=== PATIENT | female | born 1950 | race Caucasian/White ===

== ENCOUNTER → 2019-05-07 10:09 | Outpatient (CLI) | payer MEDICARE, SELFPAY ==
--- NOTE | ~2019-05-07 | XR_ITS ---
XR shoulder LT min 2V 05/07/2019 10:29 Indication: Left shoulder pain Procedure: 4 views left shoulder Comparison: No prior studies for comparison. Findings: No acute fracture, subluxation or dislocation. There is anatomic alignment. Normal minerali zation. Surrounding osseous structures and soft tissues are unremarkable. Impression: 1: No significant bone or joint abnormality. Reviewed, dictated and finalized at location B. [employer] Impression: 1: No significant bone or joint abnormality.
== END ==
PROVIDERS: PCP Nurse Practitioner; Visit Provider Nurse Practitioner
DX: M25.512 Pain in left shoulder (principal)
CPT/HCPCS: 73030

== ENCOUNTER 2021-01-26 08:21 | Outpatient (CLI) | payer MEDICARE, SELFPAY ==
--- NOTE | ~2021-01-26 | MR_ITS ---
EXAMINATION: MR shoulder LT wo con DATE: 01/26/2021 09:08 INDICATION: Left shoulder pain TECHNIQUE: Magnetic resonance imaging (MRI) of the left shoulder was performed without intravenous co ntrast. Sequences included axial PD-weighted FS FSE, coronal oblique PD-weighted FS FSE, coronal obli que T2-weighted FS FSE, sagittal PD-weighted FS FSE, and sagittal T1-weighted SE. COMPARISON: Left shoulder radiographs dated 05/07/2019 FINDINGS: Coracoacromial arch: The acromion undersurface is curved in morphology (type II). The coracoacromial ligament is normal. M ild acromioclavicular osteoarthritis. Rotator cuff: Mild supraspinatus and infraspinatus tendinopathy without discrete tear. The teres minor and subscapu elizabeth tendons are normal. Normal rotator cuff muscle bulk and signal. Biceps tendon, glenoid labrum and glenohumeral cartilage: Long head of the biceps tendon is normal. Chondral labral delamination with small tear at the base of the superior glenoid labrum and mild degeneration of the posterosuperior labrum. Partial-thickness c artilage loss along the inferomedial aspect of the humeral head with fissuring and chondral surface i rregularity at the medial and superomedial aspect of the humeral head. Fluid: Small amount of increased fluid signal in the long head biceps tendon sheath which is disproportionat e to the physiologic amount fluid in the glenohumeral joint space consistent with mild bicipital teno synovitis. No loose osteochondral bodies. Mild increased fluid signal in the subacromial/subdeltoid b ursa consistent with mild bursitis. Bones: Normal marrow signal with no edema, fracture or abnormal marrow replacing process. IMPRESSION: 1. Mild glenohumeral osteoarthritis with small tear at the superior glenoid labrum and mild degenerat ion at the posterior superior labrum. 2. Mild supraspinatus and infraspinatus tendinopathy without discrete tear. 3. Mild bicipital tenosynovitis and mild subacromial/subdeltoid bursitis. Reviewed, dictated and finalized at location B. IMPRESSION: 1. Mild glenohumeral osteoarthritis with small tear at the superior glenoid lab rum and mild degeneration at the posterior superior labrum. 2. Mild supraspinatus and infraspinatus tendinopathy without discrete tear. 3. Mild bicipital tenosynovitis and mild subacromial/subdeltoid bursitis.
== END 2021-01-26 08:22 | disposition home or self-care (01) ==
PROVIDERS: PCP Internal Medicine; Visit Provider Nurse Practitioner
DX: G89.29 Other chronic pain (principal); M25.512 Pain in left shoulder; M19.012 Primary osteoarthritis, left shoulder; M75.82 Other shoulder lesions, left shoulder; M75.52 Bursitis of left shoulder
CPT/HCPCS: 73221

== ENCOUNTER 2021-02-11 01:04 | Day surgery (SDC) | payer MEDICARE, SELFPAY ==
[2021-01-26 13:30] VITALS: BMI 30.2
--- NOTE | 2021-02-10 09:50 | P.PNAN_ITS ---
Anes - Initial Pre Proc Eval Procedure: Operation Date: 02/11/21 10:45 Proposed Procedures p Esophagogastroduodenoscopy - Vamsi Galarza MD Date/Time: 02/10/21 09:50 Surgeon: Vamsi Galarza MD Pre Op Diagnosis: dysphagia Patient Data Age: 71 Gender: F Height: 1.57 m Weight: 75 kg Allergies Allergy/AdvReac Type Severity Reaction Status Date / Time latex Allergy Unknown burning Verified 02/11/21 09:22 Home Medications Medication Instructions Recorded Confirmed Type ascorbate calcium (vitamin C) 500 500 mg PO DAILY 08/20/20 01/26/21 History mg tablet cholecalciferol (vitamin D3) 50 50 mcg PO DAILY 01/19/21 01/26/21 History mcg (2,000 unit) capsule famotidine 10 mg tablet 10 mg PO DAILY #30 tablet 01/19/21 01/26/21 Rx cetirizine [Zyrtec] 10 mg PO DAILY PRN 01/26/21 01/26/21 History Patient hx anesthesia problems: none Family hx anesthesia problems: none Results Review: All pre-operative results and documents have been reviewed as part of the pre-operative evaluation. [facility] Past Medical History Medical History (Updated 01/27/21 @ 12:24 by Velvet Garcia MA) Allergies Broken leg Right 2015 Bronchitis Bursitis of shoulder, left Chicken pox Cholecystectomy planned 05/2011 Depression Dizziness Heartburn Labral tear of shoulder Measles Migraines Osteoarthritis Osteoarthritis Raynauds phenomenon Vitamin D deficiency Surgical History Surgical History H/O dilation and curettage Hx of removal of ovary Right 05/2011 Family History Family History Father Emphysema of lung Mother Diabetes mellitus Sibling Heart disease Daughter Alive and well Other Family history of arthritis Social History Social History Smoking status: Never smoker Alcohol intake: current Drinks per week: 2 Alcohol use details: Pt drinks occasionally. Living arrangements: with family Spiritual care concerns: No Anes - Eval Final PreProcedure Day of Procedure 02/10/21 09:50 Patient weight: obese Heart: regular rate and rhythm Lungs: clear to auscultation and normal air movement Airway: Mallampati scale class II Neurological: alert and oriented Last oral intake: >/= 8 hours ASA classification: II Emergent: no Anesthetic plan: proceed Anesthesia type and monitoring: general GIVS and standard monitoring Results Review: All pre-operative results and documents have been reviewed as part of the pre-operative evaluation. Informed Consent: The patient's anesthetic plan and its attendant risks and benefits were discussed with the patient/family/POA. Questions were solicited and answers provided to the satisfaction of the patient/family/POA.
--- NOTE | 2021-02-10 14:30 | PM.HPGS ---
History of Present Illness History of Present Illness Consent: Risks, benefits, and alternatives have been discussed and questions answered. Patient agrees to proceed with procedure. Chief complaint: dysphagia Narrative: Bisi Snowden is a 71 year old female with dysphagia particularly for things like meat. This has been going on for several months and is intermittent. She does use famotidine p.r.n. Review of Systems Review of Systems: All systems reviewed & are unremarkable except as noted in HPI and below PMFSH Past Medical History Medical History Allergies Broken leg Right 2015 Bronchitis Bursitis of shoulder, left Chicken pox Cholecystectomy planned 05/2011 Depression Dizziness Heartburn Labral tear of shoulder Measles Migraines Osteoarthritis Osteoarthritis Raynauds phenomenon Vitamin D deficiency Surgical History Surgical History H/O dilation and curettage Hx of removal of ovary Right 05/2011 Family History Family History Father Emphysema of lung Mother Diabetes mellitus Sibling Heart disease Daughter Alive and well Other Family history of arthritis Social History Social History Smoking status: Never smoker Alcohol intake: current Drinks per week: 2 Alcohol use details: Pt drinks occasionally. Living arrangements: with family Spiritual care concerns: No Meds Home Medications and Allergies Home Medications Medication Instructions Recorded Confirmed Type ascorbate calcium (vitamin C) 500 500 mg PO DAILY 08/20/20 01/26/21 History mg tablet cholecalciferol (vitamin D3) 50 50 mcg PO DAILY 01/19/21 01/26/21 History mcg (2,000 unit) capsule famotidine 10 mg tablet 10 mg PO DAILY #30 tablet 01/19/21 01/26/21 Rx cetirizine [Zyrtec] 10 mg PO DAILY PRN 01/26/21 01/26/21 History Allergies Allergy/AdvReac Type Severity Reaction Status Date / Time latex Allergy Unknown burning Verified 02/11/21 09:22 Exam Const: General: alert Orientation/consciousness: patient oriented x3 Resp: Auscultation: clear to auscultation bilaterally Cardio: Rhythm: regular rhythm GI: GI Palp: Yes Soft to palpation and No Tenderness to palpation present (GI) Neuro: General: patient oriented x3 Assessment and Plan Assessment and plan (1) Dysphagia: Qualifiers: Dysphagia type: unspecified Qualified Code(s): R13.10 - Dysphagia, unspecified Code(s): R13.10 - Dysphagia, unspecified Status: Acute Assessment and Plan: EGD with possible biopsy or dilatation or cautery.
[2021-02-11 09:27] VITALS: BP 138/77; PULSE 63; RESP 18; TEMP 36.9; O2SAT 98; BMI 35.3
[2021-02-11] MEDS: LACTATED RINGERS 1,000 ML 150 ML IV CONT (09:37)
[2021-02-11 10:27] VITALS: BP 146/79; PULSE 70; RESP 24; O2SAT 100
[2021-02-11 10:37] VITALS: BP 117/88; PULSE 67; RESP 18; O2SAT 100
[2021-02-11 10:47] VITALS: BP 145/89; PULSE 64; RESP 18; O2SAT 98
== END 2021-02-11 11:02 | disposition home or self-care (01) ==
PROVIDERS: PCP Internal Medicine; Visit Provider Internal Medicine Gastroenterology
PROC: 0DJ08ZZ Inspection of Upper Intestinal Tract, Via Natural or Artificial Opening Endoscopic (ICD-10-PCS; CPT 43235; principal; 2021-02-11 10:45)
DX: K22.2 Esophageal obstruction (principal); K20.80 Other esophagitis without bleeding; E55.9 Vitamin D deficiency, unspecified; I73.00 Raynaud's syndrome without gangrene; F32.9 Major depressive disorder, single episode, unspecified
CPT/HCPCS: 43249; 87081; 88305; C1726; J2704; J7120

== ENCOUNTER 2021-04-01 08:30 | Outpatient (RCR) | payer MEDICARE, SELFPAY ==
--- NOTE | 2021-02-25 10:52 | PTOPEVAL ---
Thank you for referring Bisi Snowden to [facility].? The patient is scheduled to be seen for therapy? 2 x/week for 5 weeks. Please review, sign, date and return this plan of care SILVIA. I agree with and certify that the following plan of care is medically necessary. Referring Physician Date Attending Provider: Mauricio Dias MD Diagnosis OA left shoulder Onset 2 yrs ago Subjective Information She c/o left shoulder pain for Query Text:As Reported By Patient/ 2 yrs. She was initially c/o Family left ant chest pain, but was DX with shoulder OA. She plays golfs with increased back and hip pain vs shoulder pain. Reports difficulty with reaching behind her back, overhead or with ADL's. She has increased pain with sleeping on left side. She will have numbness with sleeping on left side. Diagnostic Tests X-Rays For This Problem Yes: Mild glenohumeral degenerative changes noted with spurring Previous Treatments Previous Treatments For This Problem none Pain Assessment Left Shoulder(s) Reported Pain Level 3 Pain Description Aching,Numbness Pain Frequency Chronic,Continuous Lowest Pain Intensity 3 Greatest Pain Intensity 9 Pain Aggravating Factors ADL's,Exercise/Activity, Prolonged Position Upper Extremity Range of Motion Scapular/ Shoulder Range of Motion Left Shoulder Flexion - Active 125 Shoulder Extension - Active 35 Shoulder Abduction - Active 80 Shoulder Medial Rotation - Active 80 Shoulder Medial Rotation - Active iliac crest:Reach Behind the Back Shoulder Lateral Rotation - Active 55 Shoulder Lateral Rotation - Active T2:Reach Behind the Head Scapular/Shoulder Range of Motion Pain Limitations Scapular/Shoulder Range of Motion right shoulder MR: T11, LR: T2 Upper Extremity Muscle Strength Testing General Upper Extremity Strength Gross Upper Extremity Strength Comments oyster opener strength: right: 43.3# and left: 41.6# Scapular/Shoulder Left Shoulder Flexion Strength 3+ Fair + Shoulder Extension Strength 4- Good - Shoulder Abduction Strength 3+ Fair + Shoulder Medial Rotation Strength 4- Good - Shoulder Lateral Rotation Strength 4- Good - Shoulder Strength Comments pain with testing Muscle Length Testing Muscle Length Testing Latissmus Dorsi Muscle Length (R) Moderate Tightness,(L)
--- NOTE | 2021-03-03 11:37 | PCPTNOTE ---
Patient called & cancelled scheduled appointment this date due to sickness.
[2021-04-01 08:33] VITALS: BP_SYST 150
--- NOTE | 2021-04-01 11:59 | PTOPEVAL ---
Physical Therapy Discharge Note Thank you for referring Bisi Snowden to [facility].? Bisi has attended 6 therapy visits to address her UE impairments. As a result of skilled therapy she demonstrates improved UE function, improved range and strength. She demonstrates indep with her HEP. See summary below for objective measures. Will DC skilled therapy services at this time with goals partially achieved. Please review, sign, date and return this discharge summary SILVIA. I agree with and certify that the following plan of care is medically necessary. Referring Physician Date Attending Provider: Mauricio Dias MD Diagnosis OA left shoulder Onset 2 yrs ago Subjective Information She c/o left shoulder pain for Query Text:As Reported By Patient/ 2 yrs. Family Reports improve shoulder pain, improved reaching and improve sleeping unless on left side. Improved reaching overhead with min pulling sensation. She can sleep 6 hr unless on left side. She is performing her HEP without difficulty. Pain Assessment Left Shoulder(s) Reported Pain Level 0 Pain Description Aching,Soreness Pain Frequency Intermittent Lowest Pain Intensity 0 Greatest Pain Intensity 9 Pain Aggravating Factors Prolonged Position Upper Extremity Range of Motion Scapular/ Shoulder Range of Motion Left Shoulder Flexion - Active 150 Shoulder Flexion - Passive 158 Shoulder Extension - Active 50 Shoulder Abduction - Active 110 Shoulder Abduction - Passive 150 Shoulder Medial Rotation - Active 75 Shoulder Medial Rotation - Active L 1:Reach Behind the Back Shoulder Lateral Rotation - Active 70 Shoulder Lateral Rotation - Active T2:Reach Behind the Head Scapular/Shoulder Range of Motion Pain Limitations Scapular/Shoulder Range of Motion rotation measured at 90 dg Comments Upper Extremity Muscle Strength Testing Scapular/Shoulder Left Shoulder Flexion Strength 4- Good - Shoulder Extension Strength 4 Good Shoulder Abduction Strength 4- Good - Shoulder Medial Rotation Strength 4 Good Shoulder Lateral Rotation Strength 4 Good Shoulder Strength Comments no pain with testing Palpation Assessment Palpation Palpation tenderness of left supraspinatus, proximal bicep tendon, acromion process decreased GH inf glide and scapular mobilization PT Clinical Summary Pt referred to therapy due to
== END 2021-04-01 17:07 | disposition home or self-care (01) ==
LOC: ANHPT 08:30
PROVIDERS: PCP Internal Medicine; Visit Provider Orthopaedic Surgery
DX: M19.012 Primary osteoarthritis, left shoulder (principal)
CPT/HCPCS: 97110; 97140; 97162

== ENCOUNTER 2021-04-13 01:43 | Day surgery (SDC) | payer MEDICARE, SELFPAY ==
[2021-04-01 13:18] VITALS: BMI 30.2
--- NOTE | 2021-04-10 14:33 | PM.HPGS ---
History of Present Illness History of Present Illness Consent: Risks, benefits, and alternatives have been discussed and questions answered. Patient agrees to proceed with procedure. Chief complaint: esophageal stricture Narrative: Bisi Snodwen is a 71 year old female Who was found to have a severe stricture at the distal esophagus 2 months ago. She has been taking omeprazole. She has noted some improvement. We were only able to dilated to 16.5 mm last time. Review of Systems Review of Systems: All systems reviewed & are unremarkable except as noted in HPI and below PMFSH Past Medical History Medical History Allergies Arthritis of left shoulder region Broken leg Right 2015 Bronchitis Bursitis of shoulder, left Chicken pox Cholecystectomy planned 05/2011 Depression Dizziness Heartburn Measles Migraines Osteoarthritis Osteoarthritis Raynauds phenomenon Vitamin D deficiency Surgical History Surgical History H/O dilation and curettage Hx of removal of ovary Right 05/2011 Family History Family History Father Emphysema of lung Mother Diabetes mellitus Sibling Heart disease Daughter Alive and well Other Family history of arthritis Social History Social History Smoking status: Never smoker Alcohol intake: current Drinks per week: 2 Alcohol use details: on occasion Substance use: never Substance use type: does not use Living arrangements: with roommate(s) Gender identity (if verbalized by the patient): Female Spiritual care concerns: No Meds Home Medications and Allergies Home Medications Medication Instructions Recorded Confirmed Type ascorbate calcium (vitamin C) 500 500 mg PO DAILY 08/20/20 04/13/21 History mg tablet cholecalciferol (vitamin D3) 50 50 mcg PO DAILY 01/19/21 04/13/21 History mcg (2,000 unit) capsule cetirizine [Zyrtec] 10 mg PO DAILY PRN 01/26/21 04/13/21 History omeprazole 40 mg PO DAILY #30 cap 02/11/21 04/13/21 Rx Allergies Allergy/AdvReac Type Severity Reaction Status Date / Time latex Allergy Unknown burning Verified 04/13/21 07:37 Exam Const: General: alert Orientation/consciousness: patient oriented x3 Resp: Auscultation: clear to auscultation bilaterally Cardio: Rhythm: regular rhythm GI: GI Palp: Yes Soft to palpation and No Tenderness to palpation present (GI) Neuro: General: patient oriented x3 Assessment and Plan Assessment and plan (1) Dysphagia: Qualifiers: Dysphagia type: unspecified Qualified Code(s): R13.10 - Dysphagia, unspecified Code(s): R13.10 - Dysphagia, unspecified Status: Acute Assessment and Plan: EGD with possible biopsy or dilatation or cautery.
[2021-04-13 07:38] VITALS: BP 135/65; PULSE 64; RESP 16; TEMP 36.7; O2SAT 97
[2021-04-13] MEDS: LACTATED RINGERS 1,000 ML 150 ML IV CONT (07:40)
--- NOTE | 2021-04-13 07:52 | WPDANESEPPF ---
Anes - Initial Pre Proc Eval Procedure: Operation Date: 04/13/21 08:30 Proposed Procedures p Esophagogastroduodenoscopy - Vamsi Galarza MD Date/Time: 04/13/21 07:52 Surgeon: Vamsi Galarza MD Pre Op Diagnosis: esophageal stricture Patient Data Age: 71 Gender: F Height: 1.57 m Weight: 77.5 kg Last Vital Signs Temp 36.7 C 04/13/21 07:38 Pulse 64 04/13/21 07:38 Resp 16 04/13/21 07:38 BP 135/65 04/13/21 07:38 Pulse Ox 97 04/13/21 07:38 Allergies Allergy/AdvReac Type Severity Reaction Status Date / Time latex Allergy Unknown burning Verified 04/13/21 07:37 Home Medications Medication Instructions Recorded Confirmed Type ascorbate calcium (vitamin C) 500 500 mg PO DAILY 08/20/20 04/13/21 History mg tablet cholecalciferol (vitamin D3) 50 50 mcg PO DAILY 01/19/21 04/13/21 History mcg (2,000 unit) capsule cetirizine [Zyrtec] 10 mg PO DAILY PRN 01/26/21 04/13/21 History omeprazole 40 mg PO DAILY #30 cap 02/11/21 04/13/21 Rx Patient hx anesthesia problems: none Family hx anesthesia problems: none Results Review: All pre-operative results and documents have been reviewed as part of the pre-operative evaluation. [facility] Past Medical History Medical History (Updated 02/17/21 @ 09:01 by Mauricio Dias MD) Allergies Arthritis of left shoulder region Broken leg Right 2015 Bronchitis Bursitis of shoulder, left Chicken pox Cholecystectomy planned 05/2011 Depression Dizziness Heartburn Measles Migraines Osteoarthritis Osteoarthritis Raynauds phenomenon Vitamin D deficiency Surgical History Surgical History H/O dilation and curettage Hx of removal of ovary Right 05/2011 Family History Family History Father Emphysema of lung Mother Diabetes mellitus Sibling Heart disease Daughter Alive and well Other Family history of arthritis Social History Social History (Updated 02/17/21 @ 08:51 by Sondra Miller) Smoking status: Never smoker Alcohol intake: current Drinks per week: 2 Alcohol use details: on occasion Substance use: never Substance use type: does not use Living arrangements: with roommate(s) Gender identity (if verbalized by the patient): Female Spiritual care concerns: No Anes - Eval Final PreProcedure Day of Procedure 04/13/21 07:52 Patient weight: obese Heart: regular rate and rhythm Lungs: clear to auscultation and normal air movement Airway: Mallampati scale class II Neurological: alert and oriented Last oral intake: >/= 8 hours ASA classification: II Emergent: no Anesthetic plan: proceed Anesthesia type and monitoring: general GIVS and standard monitoring Results Review: All pre-operative results and documents have been reviewed as part of the pre-operative evaluation. Informed Consent: The patient's anesthetic plan and its attendant risks and benefits were discussed with the patient/family/POA. Questions were solicited and answers provided to the satisfaction of the patient/family/POA.
[2021-04-13 08:39] VITALS: BP 137/74; PULSE 65; RESP 16; O2SAT 98
[2021-04-13 08:49] VITALS: BP 135/70; PULSE 65; RESP 17; O2SAT 100
[2021-04-13 08:57] VITALS: BP 139/73; PULSE 64; RESP 15; O2SAT 100
== END 2021-04-13 09:08 | disposition home or self-care (01) ==
PROVIDERS: PCP Internal Medicine; Visit Provider Internal Medicine Gastroenterology
PROC: 0DJ08ZZ Inspection of Upper Intestinal Tract, Via Natural or Artificial Opening Endoscopic (ICD-10-PCS; CPT 43235; principal; 2021-04-13 08:30)
DX: K44.9 Diaphragmatic hernia without obstruction or gangrene (principal); K29.50 Unspecified chronic gastritis without bleeding; K22.2 Esophageal obstruction; R12 Heartburn; M19.012 Primary osteoarthritis, left shoulder; E55.9 Vitamin D deficiency, unspecified; I73.00 Raynaud's syndrome without gangrene; F32.A Depression, unspecified
CPT/HCPCS: 43249; 43239; 88305; C1726; J2704; J7120

== ENCOUNTER → 2022-06-08 08:04 | Outpatient (CLI) | payer MEDICARE, SELFPAY ==
--- NOTE | ~2022-06-08 | XR_ITS ---
XR chest 2V DATE: 06/08/2022 08:24 INDICATION: Cough for 2 months. Fever 5 days ago. Nonsmoker. TECHNIQUE: PA and lateral views COMPARISON: June 10, 2011 PA and lateral chest FINDINGS: Normal heart size. No hilar or mediastinal enlargement. Minimal discoid atelectasis or scarring at the left lung base. No pulmonary infiltrate or consolidati on, pleural effusion or pulmonary vascular congestion or pneumothorax is detected. Osteopenia. Diffuse idiopathic skeletal hyperostosis of the thoracic spine Status post cholecystectomy. IMPRESSION: Minimal discoid atelectasis or scarring at the left lung base; otherwise no active cardio pulmonary disease Diffuse idiopathic skeletal hyperostosis of the thoracic spine Osteopenia Status post cholecystectomy Reviewed, dictated and finalized at location A. [employer] IMPRESSION: Minimal discoid atelectasis or scarring at the left lung base; othe rwise no active cardiopulmonary disease Diffuse idiopathic skeletal hyperostosis of the thoracic spine Osteopenia Status post cholecystectomy
== END ==
PROVIDERS: PCP Internal Medicine; Visit Provider Clinical Nurse Specialist
DX: R05.9 Cough, unspecified (principal); R06.02 Shortness of breath; Z90.49 Acquired absence of other specified parts of digestive tract; M48.14 Ankylosing hyperostosis [Forestier], thoracic region
CPT/HCPCS: 71046

== ENCOUNTER 2022-12-02 09:29 | Outpatient (CLI) | payer MEDICARE, SELFPAY ==
[2022-12-02 16:04] LABS: Basophils Percent Auto 0.8 % (0.2-1.2); Eosinophils Absolute Auto 0.2 K/mm3 (0-0.3); Hematocrit 41.8 % (37.0-47.0); Lymphocytes Percent Auto 35.5 % (18.3-44.2); Mean Corpuscular HGB Conc 31.1 g/dl (32-36); Mean Corpuscular Hemoglobin 29.2 pg (26-34); Mean Corpuscular Volume 93.9 fl (80-100); Mean Platelet Volume 10.4 fl (7.4-10.4); Monocytes Absolute Auto 0.4 K/mm3 (0.1-0.6); Monocytes Percent Auto 8.7 % (2.6-8.5); Neutrophils Absolute Auto 2.6 K/mm3 (1.3-6.7); Platelet Count Result 265 k/mm3 (150-375); Red Blood Count 4.45 M/mm3 (4.2-5.4); Red Cell Distribution Width 14.6 % (11.5-14.5); White Blood Count 5.1 K/mm3 (4.5-10.0)
[2022-12-02 16:58] LABS: Erythrocyte Sedimentation Rate 11 mm/hr (0-20)
[2022-12-02 17:54] LABS: Vitamin D 25 Hydroxy 39.2 ng/mL
[2022-12-02 19:08] LABS: Alanine Aminotransferase 30 U/L (6-35); Albumin Level 4.4 g/dL (3.5-5.1); Alkaline Phosphatase 67 U/L (38-126); Anion Gap 7 mmol/L (8-16); Aspartate Amino Transferase 41 U/L (14-36); Bilirubin,Total 0.7 mg/dL (0.2-1.3); Blood Urea Nitrogen 16 mg/dL (7-17); Carbon Dioxide 25 mmol/L (22-30); Chloride 109 mmol/L (98-107); Cholesterol 239 mg/dL (0-200); Estimated Glomerular Filt Rate > 60; Glucose 88 mg/dL (65-110); HDL Direct 50 mg/dL; Sodium 141 mmol/L (137-145); Triglycerides 99 mg/dL (<150)
[2022-12-02 19:14] LABS: Rheumatoid Factor < 12.0 IU/ML (<12)
[2022-12-02 19:19] LABS: LDL Cholesterol Direct 151 mg/dL
[2022-12-02 20:48] LABS: Vitamin B12 > 1000.0 pg/mL (239-931)
[2022-12-06 02:30] LABS: ANA Cascade Screen Negative (Negative)
== END 2022-12-02 09:30 | disposition home or self-care (01) ==
PROVIDERS: PCP Internal Medicine; Visit Provider Clinical Nurse Specialist
DX: E53.8 Deficiency of other specified B group vitamins (principal); E55.9 Vitamin D deficiency, unspecified; E78.5 Hyperlipidemia, unspecified; M35.3 Polymyalgia rheumatica; Z13.228 Encounter for screening for other metabolic disorders
CPT/HCPCS: 36415; 80053; 80061; 82306; 82607; 84443; 85025; 85652; 86038; 86430

== ENCOUNTER → 2022-12-02 09:48 | Outpatient (CLI) | payer MEDICARE, SELFPAY ==
--- NOTE | ~2022-12-02 | XR_ITS ---
Right Knee Technique: AP, lateral, and sunrise views were obtained. Clinical History: Pain Findings: No fracture or dislocation is seen. Osseous alignment is anatomic. There is minimal spurrin g at the lateral joint line and patella. Soft tissues are unremarkable. No joint effusion is seen. Impression: Minimal degenerative spurring, as above. Reviewed, dictated and finalized at location M. Impression: Minimal degenerative spurring, as above.
--- NOTE | ~2022-12-02 | XR_ITS ---
AP and lateral views of the right hip Clinical history: Pain Findings: No acute fracture or dislocation is seen. Osseous alignment is anatomic. Right hip joint an d right SI joint are preserved. Soft tissues are unremarkable. Impression: No significant abnormality is seen. Reviewed, dictated and finalized at [facility]. Impression: No significant abnormality is seen.
== END ==
PROVIDERS: PCP Internal Medicine; Visit Provider Clinical Nurse Specialist
DX: M25.561 Pain in right knee (principal); M25.551 Pain in right hip; M76.51 Patellar tendinitis, right knee
CPT/HCPCS: 73502; 73562

== ENCOUNTER 2023-03-24 08:02 | Day surgery (SDC) | payer MEDICARE, SELFPAY ==
[2023-02-11 14:07] VITALS: BMI 29.2
--- NOTE | 2023-03-23 10:31 | WPDANESEPPF ---
Anes - Initial Pre Proc Eval Procedure: Operation Date: 03/24/23 10:30 Proposed Procedures p Screening Colonoscopy - Vamsi Galarza MD Date/Time: 03/23/23 10:31 Surgeon: Vamsi Galarza MD Pre Op Diagnosis: Z12.11 Screening for neoplasm of colon Patient Data Age: 73 Gender: F Height: 1.57 m Weight: 72.575 kg Allergies Allergy/AdvReac Type Severity Reaction Status Date / Time latex Allergy Unknown burning Verified 03/24/23 09:10 Home Medications Medication Instructions Recorded Confirmed Type omeprazole 40 mg capsule,delayed 40 mg PO DAILY #90 caps 06/03/22 03/24/23 Rx release albuterol sulfate 90 mcg/actuation 2 puff inhalation Q4H PRN 06/08/22 03/24/23 Rx aerosol inhaler shortness of breath or wheezing #8.5 grams azelastine 137 mcg (0.1 %) nasal 137 mcg (0.137 mL) intranasal Q12H 06/08/22 03/24/23 Rx spray aerosol #30 mL cholecalciferol (vitamin D3) 50 50 mcg PO DAILY 03/08/23 03/24/23 History mcg (2,000 unit) tablet (Vitamin D3) cyanocobalamin (vitamin B-12) 2,500 mcg sublingual DAILY 03/08/23 03/24/23 History 2,500 mcg sublingual tablet (Vitamin B-12) Patient hx anesthesia problems: none Family hx anesthesia problems: none Results Review: All pre-operative results and documents have been reviewed as part of the pre-operative evaluation. [facility] Past Medical History Medical History (Updated 03/24/23 @ 09:50 by Vamsi Galarza MD) Allergies Arthritis of left shoulder region Broken leg Right 2015 Bronchitis Bursitis of shoulder, left Chest pain Chicken pox Cholecystectomy planned 05/2011 Chronic sinusitis Depression Dizziness Dysphagia Encounter for screening mammogram for breast cancer Family history of lupus Heartburn Hyperlipidemia Left shoulder pain Measles Migraines Numbness and tingling in both hands Osteoarthritis Osteoarthritis Post-menopausal Raynauds phenomenon Screening for colon cancer Shortness of Breath Viral syndrome Vitamin D deficiency Surgical History Surgical History H/O dilation and curettage Hx of removal of ovary Right 05/2011 Family History Family History Father Emphysema of lung Mother Diabetes mellitus Sibling Heart disease Daughter Alive and well Other Family history of arthritis Social History Social History Smoking status: Never smoker Alcohol intake: current Drinks per week: 2 Alcohol use details: rarely, when golfing Substance use: never Substance use type: does not use Lack of Transportation: No Lack of Food: Never True Current Housing: I Have Housing Concerned About Future Housing: No Difficulty Paying Gas/Electric Bills: No Difficulty Paying for Meds: No Currently Unemployed: No Education: High School Diploma/GED Difficulty w/ Childcare or Family Care: No Living arrangements: with roommate(s) Gender identity (if verbalized by the patient): Female Spiritual care concerns: No Anes - Eval Final PreProcedure Day of Procedure 03/23/23 10:31 Patient weight: overweight Heart: regular rate and rhythm Lungs: clear to auscultation Airway: Mallampati scale class II Neurological: alert and oriented Last oral intake: >/= 8 hours ASA classification: II Emergent: no Anesthetic plan: proceed Anesthesia type and monitoring: general GIVS and standard monitoring Results Review: All pre-operative results and documents have been reviewed as part of the pre-operative evaluation. Informed Consent: The patient's anesthetic plan and its attendant risks and benefits were discussed with the patient/family/POA. Questions were solicited and answers provided to the satisfaction of the patient/family/POA.
--- NOTE | 2023-03-23 13:49 | PM.HPGS ---
History of Present Illness History of Present Illness Consent: Risks, benefits, and alternatives have been discussed and questions answered. Patient agrees to proceed with procedure. Chief complaint: Z12.11 Screening for neoplasm of colon Narrative: Bisi Snowden is a 73 year old female referred for colon cancer screening. Her last colonoscopy was 12 years ago Review of Systems Review of Systems: All systems reviewed & are unremarkable except as noted in HPI and below PMFSH Past Medical History Medical History (Updated 03/24/23 @ 09:50 by Vamsi Galarza MD) Allergies Arthritis of left shoulder region Broken leg Right 2015 Bronchitis Bursitis of shoulder, left Chest pain Chicken pox Cholecystectomy planned 05/2011 Chronic sinusitis Depression Dizziness Dysphagia Encounter for screening mammogram for breast cancer Family history of lupus Heartburn Hyperlipidemia Left shoulder pain Measles Migraines Numbness and tingling in both hands Osteoarthritis Osteoarthritis Post-menopausal Raynauds phenomenon Screening for colon cancer Shortness of Breath Viral syndrome Vitamin D deficiency Surgical History Surgical History H/O dilation and curettage Hx of removal of ovary Right 05/2011 Family History Family History Father Emphysema of lung Mother Diabetes mellitus Sibling Heart disease Daughter Alive and well Other Family history of arthritis Social History Social History Smoking status: Never smoker Alcohol intake: current Drinks per week: 2 Alcohol use details: rarely, when golfing Substance use: never Substance use type: does not use Lack of Transportation: No Lack of Food: Never True Current Housing: I Have Housing Concerned About Future Housing: No Difficulty Paying Gas/Electric Bills: No Difficulty Paying for Meds: No Currently Unemployed: No Education: High School Diploma/GED Difficulty w/ Childcare or Family Care: No Living arrangements: with roommate(s) Gender identity (if verbalized by the patient): Female Spiritual care concerns: No Meds Home Medications and Allergies Home Medications Medication Instructions Recorded Confirmed Type omeprazole 40 mg capsule,delayed 40 mg PO DAILY #90 caps 06/03/22 03/24/23 Rx release albuterol sulfate 90 mcg/actuation 2 puff inhalation Q4H PRN 06/08/22 03/24/23 Rx aerosol inhaler shortness of breath or wheezing #8.5 grams azelastine 137 mcg (0.1 %) nasal 137 mcg (0.137 mL) intranasal Q12H 06/08/22 03/24/23 Rx spray aerosol #30 mL cholecalciferol (vitamin D3) 50 50 mcg PO DAILY 03/08/23 03/24/23 History mcg (2,000 unit) tablet (Vitamin D3) cyanocobalamin (vitamin B-12) 2,500 mcg sublingual DAILY 03/08/23 03/24/23 History 2,500 mcg sublingual tablet (Vitamin B-12) Allergies Allergy/AdvReac Type Severity Reaction Status Date / Time latex Allergy Unknown burning Verified 03/24/23 09:10 Exam Const: General: alert Orientation/consciousness: patient oriented x3 Resp: Auscultation: clear to auscultation bilaterally Cardio: Rhythm: regular rhythm GI: GI Palp: Yes Soft to palpation and No Tenderness to palpation present (GI) Neuro: General: patient oriented x3 Assessment and Plan Assessment and plan (1) Screening for colon cancer: Code(s): Z12.11 - Encounter for screening for malignant neoplasm of colon Status: Acute Assessment and Plan: Colonoscopy with possible biopsy or polypectomy or cautery or injection of substances. Plan Colonoscopy with possible biopsy or polypectomy or cautery or injection of substances.
[2023-03-24 09:14] VITALS: BP 133/67; PULSE 67; RESP 18; TEMP 37.3; O2SAT 98; BMI 28.7
--- NOTE | 2023-03-24 09:16 | SUR.PREOP ---
PT HAS A CONGESTED SOUNDING, NONPRODUCTIVE COUGH.
[2023-03-24] MEDS: LACTATED RINGERS 1,000 ML 150 ML IV CONT (09:31)
[2023-03-24 10:36] VITALS: BP 111/61; PULSE 65; RESP 16; O2SAT 95
[2023-03-24 10:46] VITALS: BP 106/67; PULSE 76; RESP 18; O2SAT 100
[2023-03-24 10:56] VITALS: BP 120/65; PULSE 72; RESP 18; O2SAT 100
--- NOTE | 2023-03-25 09:57 | WPDANESPN ---
Anes - Prog Note Post-Op Date/Time: 03/25/23 09:57 Cardiovascular status: normal Respiratory status: normal Airway patency: baseline Mental status: baseline Post-Op hydration status: normal Vital Signs: Last Vital Signs Temp 37.3 C 03/24/23 09:14 Pulse 72 03/24/23 10:56 Resp 18 03/24/23 10:56 BP 120/65 03/24/23 10:56 Pulse Ox 100 03/24/23 10:56 O2 Del Method Room Air 03/24/23 10:56 Pain Score (VAS): 0 Post-procedural complaints: none Patient Feedback: Patient satisfied with anesthetic care. Other Findings: Patient vital signs back to baseline. Patient denies nausea and vomiting. Patient's pain under control. Patient OK for discharge.
== END 2023-03-24 11:06 | disposition home or self-care (01) ==
PROVIDERS: PCP Internal Medicine; Visit Provider Internal Medicine Gastroenterology
PROC: 0DJD8ZZ Inspection of Lower Intestinal Tract, Via Natural or Artificial Opening Endoscopic (ICD-10-PCS; CPT 45378; principal; 2023-03-24 10:30)
DX: Z12.11 Encounter for screening for malignant neoplasm of colon (principal); K57.30 Diverticulosis of large intestine without perforation or abscess without bleeding; K64.8 Other hemorrhoids
CPT/HCPCS: 45378

== ENCOUNTER → 2023-04-12 11:31 | Outpatient (CLI) | payer MEDICARE, SELFPAY ==
--- NOTE | ~2023-04-12 | MM_ITS ---
EXAMINATION: MM screening keny BI w jaimee HISTORY: Screening mammogram TECHNIQUE: Craniocaudal and mediolateral oblique 3-D tomosynthesis images were obtained and synthetic 2-D images were generated. CAD analysis was submitted and interpreted. COMPARISON: May 27, 2017 bilateral screening mammogram BREAST PARENCHYMAL COMPOSITION: There are scattered areas of fibroglandular density. FINDINGS: There is no evidence of suspicious mass, calcification, or architectural distortion to sugg est malignancy in either breast. There has been no suspicious interval change. IMPRESSION: 1. No mammographic evidence of malignancy. 2. Recommend routine screening mammography in one year. BI-RADS Category 1: Negative Reviewed, dictated and finalized at location A. [employer]
--- NOTE | ~2023-04-12 | DEXA_ITS ---
Bone Density Report Name: TATA FIELD Age: 73 Sex: Female Ethnicity: White Date of : 1950 Indication: postmenopausal; screening for osteoporosis; prior fracture; Referring Provider: Rosalina Andujar Study: Bone densitometry was performed. Exam Date: April 12, 2023 Accession number: [id number] Bone Density: Region BMD T-score Z-score Classification AP Spine (L1-L4) 1.049 0.0 2.3 Normal Femoral Neck (Left) 0.657 -1.7 0.2 Osteopenia Total Hip (Left) 0.773 -1.4 0.2 Osteopenia Femoral Neck (Right) 0.641 -1.9 0.0 Osteopenia Total Hip (Right) 0.702 -2.0 -0.3 Osteopenia Total Hip Mean 0.738 -1.7 -0.1 Osteopenia World Health Organization criteria for BMD impression classify patients as: Normal (T-score at or above -1.0), Osteopenia (T-score between -1.0 and -2.5), or Osteoporosis (T-score at or below -2.5). 10-year Fracture Risk(1): Major Osteoporotic Fracture 17% Hip Fracture 3.2% Reported Risk Factors: [place] (), Neck BMD=0.641, BMI=30.2, previous fracture (1) FRAX(R) Version 3.08. Fracture probability calculated for an untreated patient. Fracture probability may be lower if the patient has received treatment. Clinical Information Provided by Patient: Has had a low trauma fracture Has used the following medications: Vitamin D Patient maximum height was 61.5 Menopause Age: 53 No regular weight bearing exercise Drinks caffeinated beverages Onset of menses at age 13 Number of children 2 Impression: The patient has low bone mass, based on the Right Total Hip T-score. The patient has an estimated ten-year risk of hip fracture of 3.2% and an estimated ten-year risk of major fracture of 17%, based on the WHO FRAX algorithm. The patient has risk factors, including: previous fracture. Discussion: BONE DENSITY IS LOW AT ONE OR MORE SKELETAL SITES. THE PATIENT'S BMD AND CLINICAL RISK FACTORS CONTRIBUTE TO THIS PATIENT'S INCREASED RISK OF FRACTURE. This patient's lowest T-score is low at one or more skeletal sites. It meets the World Health Organization's (WHO) criteria for ?low bone mass? (T-score between -1.0 and -2.5). The patient's 10-year risk of hip fracture as calculated by FRAX exceeds the threshold where pharmacological therapy is recommended by the National Osteoporosis Foundation (NOF). However, all treatment decisions require clinical judgment and consideration of individual patient factors, including patient preferences, comorbidities, previous drug use, risk factors not captured in the FRAX model (e.g., frailty, falls, vitamin D deficiency, increased bone turnover, interval significant decline in bone density) and possible under or overestimation of fracture risk by FRAX. The patient should follow a healthful lifestyle (good nutrition with adequate calcium and vitamin
== END ==
PROVIDERS: PCP Clinical Nurse Specialist; Visit Provider Clinical Nurse Specialist
DX: Z12.31 Encounter for screening mammogram for malignant neoplasm of breast (principal); M85.89 Other specified disorders of bone density and structure, multiple sites; Z78.0 Asymptomatic menopausal state
CPT/HCPCS: 77063; 77067; 77080

== ENCOUNTER 2023-06-09 10:18 | Day surgery (SDC) | payer MEDICARE, SELFPAY ==
[2023-05-30 07:57] VITALS: BMI 24.7
[2023-06-09 11:10] VITALS: BP 143/74; PULSE 63; RESP 20; TEMP 37.5; O2SAT 98
[2023-06-09] MEDS: LACTATED RINGERS 1,000 ML 150 ML IV CONT (11:50)
--- NOTE | 2023-06-09 11:56 | WPDANESEPPF ---
Anes - Initial Pre Proc Eval Procedure: Operation Date: 06/09/23 12:30 Proposed Procedures p Esophagogastroduodenoscopy - Jose M Zafar MD Date/Time: 06/09/23 11:56 Surgeon: Jose M Zafar MD Pre Op Diagnosis: Dysphagia, unspecified Patient Data Age: 73 Gender: F Height: 1.57 m Weight: 75.6 kg Last Vital Signs Temp 37.5 C 06/09/23 11:10 Pulse 63 06/09/23 11:10 Resp 20 06/09/23 11:10 BP 143/74 H 06/09/23 11:10 Pulse Ox 98 06/09/23 11:10 O2 Del Method Room Air 06/09/23 11:10 Allergies Allergy/AdvReac Type Severity Reaction Status Date / Time latex Allergy Unknown burning Verified 06/09/23 11:35 Home Medications Medication Instructions Recorded Confirmed Type albuterol sulfate 90 mcg/actuation 2 puff inhalation Q4H PRN 06/08/22 06/09/23 Rx aerosol inhaler shortness of breath or wheezing #8.5 grams azelastine 137 mcg (0.1 %) nasal 137 mcg (0.137 mL) intranasal Q12H 06/08/22 06/09/23 Rx spray aerosol #30 mL cholecalciferol (vitamin D3) 50 50 mcg PO DAILY 03/08/23 06/09/23 History mcg (2,000 unit) tablet (Vitamin D3) cyanocobalamin (vitamin B-12) 2,500 mcg sublingual DAILY 03/08/23 06/09/23 History 2,500 mcg sublingual tablet (Vitamin B-12) omeprazole 40 mg capsule,delayed 40 mg PO DAILY #90 caps 05/21/23 06/09/23 Rx release Patient hx anesthesia problems: none Family hx anesthesia problems: none Results Review: All pre-operative results and documents have been reviewed as part of the pre-operative evaluation. [facility] Past Medical History Medical History Allergies Arthritis of left shoulder region Broken leg Right 2015 Bronchitis Bursitis of shoulder, left Chest pain Chicken pox Cholecystectomy planned 05/2011 Chronic sinusitis Depression Dizziness Dysphagia Encounter for screening mammogram for breast cancer Family history of lupus Heartburn Hyperlipidemia Left shoulder pain Measles Migraines Numbness and tingling in both hands Osteoarthritis Osteoarthritis Post-menopausal Raynauds phenomenon Screening for colon cancer Shortness of Breath Viral syndrome Vitamin D deficiency Surgical History Surgical History H/O dilation and curettage Hx of removal of ovary Right 05/2011 Family History Family History Father Emphysema of lung Mother Diabetes mellitus Sibling Heart disease Daughter Alive and well Other Family history of arthritis Social History Social History Smoking status: Never smoker Alcohol intake: current Drinks per week: 2 Alcohol use details: rarely Substance use: never Substance use type: does not use Lack of Transportation: No Lack of Food: Never True Current Housing: I Have Housing Concerned About Future Housing: No Difficulty Paying Gas/Electric Bills: No Difficulty Paying for Meds: No Currently Unemployed: No Education: High School Diploma/GED Difficulty w/ Childcare or Family Care: No Living arrangements: with roommate(s) Gender identity (if verbalized by the patient): Female Spiritual care concerns: No Anes - Eval Final PreProcedure Day of Procedure 06/09/23 11:56 Patient weight: overweight Heart: regular rate and rhythm Lungs: clear to auscultation Airway: Mallampati scale class II Neurological: alert and oriented Last oral intake: >/= 8 hours ASA classification: II Emergent: no Anesthetic plan: proceed Anesthesia type and monitoring: general GIVS and standard monitoring Results Review: All pre-operative results and documents have been reviewed as part of the pre-operative evaluation. Informed Consent: The patient's anesthetic plan and its attendant risks and benefits were discussed with the pa
--- NOTE | 2023-06-09 12:14 | PM.HPGS ---
History of Present Illness History of Present Illness Consent: Risks, benefits, and alternatives have been discussed and questions answered. Patient agrees to proceed with procedure. Chief complaint: Dysphagia, Narrative: Bisi Snowden is a 73 year old female presents for EGD. Patient complains of food catching in the mid substernal portion of the chest. She was found to have esophageal stricture over the last year to. She currently is maintained on omeprazole 40mg p.o. daily. Patient denies any heartburn. She has had no weight loss. Patient presents today for follow-up endoscopy. She does have a prior history of unremarkable colonoscopy in February of 2023. Review of Systems Review of Systems: Review of systems is noncontributory. [facility] Past Medical History Medical History Allergies Arthritis of left shoulder region Broken leg Right 2015 Bronchitis Bursitis of shoulder, left Chest pain Chicken pox Cholecystectomy planned 05/2011 Chronic sinusitis Depression Dizziness Dysphagia Encounter for screening mammogram for breast cancer Family history of lupus Heartburn Hyperlipidemia Left shoulder pain Measles Migraines Numbness and tingling in both hands Osteoarthritis Osteoarthritis Post-menopausal Raynauds phenomenon Screening for colon cancer Shortness of Breath Viral syndrome Vitamin D deficiency Surgical History Surgical History H/O dilation and curettage Hx of removal of ovary Right 05/2011 Family History Family History Father Emphysema of lung Mother Diabetes mellitus Sibling Heart disease Daughter Alive and well Other Family history of arthritis Social History Social History Smoking status: Never smoker Alcohol intake: current Drinks per week: 2 Alcohol use details: rarely Substance use: never Substance use type: does not use Lack of Transportation: No Lack of Food: Never True Current Housing: I Have Housing Concerned About Future Housing: No Difficulty Paying Gas/Electric Bills: No Difficulty Paying for Meds: No Currently Unemployed: No Education: High School Diploma/GED Difficulty w/ Childcare or Family Care: No Living arrangements: with roommate(s) Gender identity (if verbalized by the patient): Female Spiritual care concerns: No Meds Home Medications and Allergies Home Medications Medication Instructions Recorded Confirmed Type albuterol sulfate 90 mcg/actuation 2 puff inhalation Q4H PRN 06/08/22 06/09/23 Rx aerosol inhaler shortness of breath or wheezing #8.5 grams azelastine 137 mcg (0.1 %) nasal 137 mcg (0.137 mL) intranasal Q12H 06/08/22 06/09/23 Rx spray aerosol #30 mL cholecalciferol (vitamin D3) 50 50 mcg PO DAILY 03/08/23 06/09/23 History mcg (2,000 unit) tablet (Vitamin D3) cyanocobalamin (vitamin B-12) 2,500 mcg sublingual DAILY 03/08/23 06/09/23 History 2,500 mcg sublingual tablet (Vitamin B-12) omeprazole 40 mg capsule,delayed 40 mg PO DAILY #90 caps 05/21/23 06/09/23 Rx release Allergies Allergy/AdvReac Type Severity Reaction Status Date / Time latex Allergy Unknown burning Verified 06/09/23 11:35 Vital Signs Vital Signs - 24 hr 06/09/23 11:10 Temperature 99.5 F Pulse Rate 63 Respiratory Rate 20 Blood Pressure 143/74 H Pulse Oximetry 98 Oxygen Delivery Room Air Exam Narrative: Physical exam reveals patient to vital signs stable. HEENT exam is unremarkable. Patient is anicteric. Lungs are clear to auscultation and percussion. Heart is without murmur or extra sounds. Abdomen bowel sounds are present soft nontender with no organomegaly. Digital external rectal exam normal. Assessment and Plan Asses
[2023-06-09 12:34] VITALS: BP 127/66; PULSE 68; RESP 15; O2SAT 99
[2023-06-09 12:44] VITALS: PULSE 55; RESP 15; O2SAT 100
--- NOTE | 2023-06-09 12:47 | WPDANESPN ---
Anes - Prog Note Post-Op Date/Time: 06/09/23 12:47 Cardiovascular status: normal Respiratory status: normal Airway patency: baseline Mental status: baseline Post-Op hydration status: normal Vital Signs: Last Vital Signs Temp 37.5 C 06/09/23 11:10 Pulse 63 06/09/23 11:10 Resp 20 06/09/23 11:10 BP 143/74 H 06/09/23 11:10 Pulse Ox 98 06/09/23 11:10 O2 Del Method Room Air 06/09/23 11:10 Pain Score (VAS): 0/10 I/O: Intake & Output 06/08/23 06/09/23 06/09/23 23:59 07:59 15:59 Intake Total 400 Balance 400 Patient Feedback: Patient satisfied with anesthetic care.
[2023-06-09 12:54] VITALS: BP 140/67; PULSE 57; RESP 16; O2SAT 100
== END 2023-06-09 13:11 | disposition home or self-care (01) ==
PROVIDERS: PCP Clinical Nurse Specialist; Visit Provider Internal Medicine Gastroenterology
PROC: 0DJ08ZZ Inspection of Upper Intestinal Tract, Via Natural or Artificial Opening Endoscopic (ICD-10-PCS; CPT 43235; principal; 2023-06-09 12:30)
DX: R13.19 Other dysphagia (principal); K22.2 Esophageal obstruction
CPT/HCPCS: 43450

== ENCOUNTER 2023-07-08 08:02 | Outpatient (CLI) | payer MEDICARE, SELFPAY ==
[2023-07-08 09:01] LABS: Hematocrit 39.7 % (37.0-47.0); Hemoglobin 12.8 g/dL (12.0-15.0); Mean Corpuscular HGB Conc 32.2 g/dl (32-36); Mean Corpuscular Hemoglobin 29.9 pg (26-34); Mean Corpuscular Volume 92.8 fl (80-100); Mean Platelet Volume 9.8 fl (7.4-10.4); Platelet Count Result 251 k/mm3 (150-375); Red Blood Count 4.28 M/mm3 (4.2-5.4); Red Cell Distribution Width 13.7 % (11.5-14.5); White Blood Count 4.9 K/mm3 (4.5-10.0)
[2023-07-08 09:06] LABS: Appearance Urine Clear (Clear); Bacteria Urine None Seen /hpf; Bilirubin Urine Negative (Negative); Blood Urine Negative (Negative); Color Urine Yellow (Yellow); Glucose Urine UA Negative (Negative); Ketones Urine Negative (Negative); Leukocyte Esterase Ur 2+ LEU/UL (Negative); Nitrate Urine Negative (Negative); Non Pathogenic Casts 0-2; Protein Urine Negative (Negative); Specific Grav Ur 1.018 (1.001-1.035); Squamous Epithelial Cell Urine Occasional /hpf (Few); Urobilinogen Urine 0.2 mg/dL (<2.0); pH Urine 5.5 (5.0-9.0)
[2023-07-08 09:15] LABS: Alanine Aminotransferase 33 U/L (6-35); Alkaline Phosphatase 74 U/L (38-126); Anion Gap 5 mmol/L (8-16); Aspartate Amino Transferase 28 U/L (14-36); Bilirubin,Total 0.7 mg/dL (0.2-1.3); Blood Urea Nitrogen 17 mg/dL (7-17); CRP < 0.5 mg/dL (<1.0); Calcium 9.5 mg/dL (8.4-10.2); Carbon Dioxide 28 mmol/L (22-30); Chloride 107 mmol/L (98-107); Estimated Glomerular Filt Rate > 60; Glucose 109 mg/dL (65-110); Potassium 4.1 mmol/L (3.4-5.0); Sodium 140 mmol/L (137-145)
[2023-07-08 09:20] LABS: Add Urine Microscopic? YES
[2023-07-08 12:11] LABS: Erythrocyte Sedimentation Rate 17 mm/hr (0-20)
[2023-07-12 05:49] LABS: Anti Cyclic Citrullinated Pept <16 Units (<20)
== END 2023-07-08 08:03 | disposition home or self-care (01) ==
PROVIDERS: PCP Clinical Nurse Specialist; Visit Provider Internal Medicine
DX: R89.9 Unspecified abnormal finding in specimens from other organs, systems and tissues (principal); M19.90 Unspecified osteoarthritis, unspecified site
CPT/HCPCS: 36415; 80053; 85027; 85652; 86140; 86200; 87086; 87088

== ENCOUNTER 2023-10-05 07:40 | Outpatient (CLI) | payer MEDICARE, SELFPAY ==
--- NOTE | ~2023-10-05 | XR_ITS ---
Left Shoulder Technique: AP and axillary views were obtained. Clinical History: Pain Findings: No fracture or dislocation is seen. Osseous alignment is anatomic. The glenohumeral and acr omioclavicular joint spaces are preserved. Soft tissues are unremarkable. Impression: Unremarkable left shoulder radiographs. Reviewed, dictated and finalized at [facility]. Impression: Unremarkable left shoulder radiographs.
--- NOTE | ~2023-10-05 | XR_ITS ---
Right Shoulder Technique: AP and axillary views were obtained. Clinical History: Arthralgia Findings: No fracture or dislocation is seen. Osseous alignment is anatomic. The glenohumeral joint i s preserved. There is mild to moderate AC joint degenerative change. Soft tissues are unremarkable. Impression: Mild to moderate AC joint degenerative change. Reviewed, dictated and finalized at location . Impression: Mild to moderate AC joint degenerative change.
--- NOTE | ~2023-10-05 | XR_ITS ---
Right Knee Technique: AP, lateral, and sunrise views were obtained. Clinical History: Arthralgia Findings: No acute fracture or dislocation is seen. Possible old, healed fracture deformity of the la teral tibial plateau. Joint spaces are preserved without degenerative or erosive change. Soft tissues are unremarkable. No joint effusion is seen. Impression: No acute abnormality. Possible old, healed fracture of the lateral tibial plateau. Reviewed, dictated and finalized at location M. Impression: No acute abnormality. Possible old, healed fracture of the lateral tibial plateau.
--- NOTE | ~2023-10-05 | MR_ITS ---
MRI of the right hip Clinical history: Pain Technique: Coronal T1-weighted, T2-weighted, and proton-density fat-sat images, and axial T1-weighted and proton-density fat-sat images were acquired through the pelvis. Coronal T2-weighted images and c oronal, axial, and sagittal proton-density fat-sat images were acquired through the right hip. Findings: There is no fracture or avascular necrosis of either hip. There is probable high-grade [place] dromalacia of the right hip joint, with subchondral cystic change in the right femoral head. There is osteophyte formation at the right femoral head neck junction. There is minimal right hip joint effus ion. No right acetabular labral tear identified. There is probable mild chondromalacia of the left hi p joint. No left hip joint effusion. Bone marrow signals of the pelvic bones are unremarkable. Musculature about the pelvis and right hip is unremarkable. No muscle atrophy or edema seen. Tendons are intact. No abnormal fluid collection or soft tissue mass seen. IMPRESSION: Moderate right hip joint osteoarthritis. Mild left hip joint osteoarthritis. Reviewed, dictated and finalized at location .
--- NOTE | ~2023-10-05 | XR_ITS ---
Lumbosacral Spine: AP and lateral views Clinical History: Pain Findings: The normal lordotic curve is maintained. No fracture seen. Probable minimal grade 1 anterol isthesis of L4 over L5. There is severe facet arthropathy at L4-L5 and L5-S1. There is mild facet art hropathy at the upper lumbar spine. There is mild to moderate degenerative distended at L2-L3. The sa croiliac joints are normally outlined. Impression: Moderate degenerative spondylosis, as above. Probable minimal grade 1 anterolisthesis of L4 over L5. Reviewed, dictated and finalized at location M. Impression: Moderate degenerative spondylosis, as above. Probable minimal grade 1 anterolisthesis of L4 over L5.
--- NOTE | ~2023-10-05 | XR_ITS ---
Left Hand Technique: PA, oblique, and lateral views were obtained. Clinical History: Arthralgia Findings: No acute fracture or dislocation is seen. There is advanced degenerative change of the firs t CMC joint. There is advanced degenerative change throughout the DIP joints of the fingers. There is mild to moderate degenerative change of the PIP joints, especially fourth and fifth. Soft tissues ar e unremarkable. Impression: Polyarticular osteoarthritis, as detailed above. Reviewed, dictated and finalized at location M. Impression: Polyarticular osteoarthritis, as detailed above.
== END 2023-10-05 07:41 ==
PROVIDERS: PCP Clinical Nurse Specialist; Visit Provider Physician Assistant Medical
DX: M25.551 Pain in right hip (principal); M19.042 Primary osteoarthritis, left hand; M17.11 Unilateral primary osteoarthritis, right knee; M51.36 Other intervertebral disc degeneration, lumbar region; M19.011 Primary osteoarthritis, right shoulder; M19.012 Primary osteoarthritis, left shoulder
CPT/HCPCS: 72100; 73030; 73120; 73562; 73721

== ENCOUNTER 2025-04-02 09:26 | Outpatient (CLI) | payer MEDICARE, SELFPAY ==
[2025-04-02 13:01] LABS: Hematocrit 43.0 % (37.0-47.0); Hemoglobin 13.7 g/dL (12.0-15.0); Immature Granulocyte Percent A 0.2 % (0-0.5); Lymphocytes Absolute Auto 1.96 K/mm3 (0.9-3.2); Mean Corpuscular HGB Conc 31.9 g/dl (32-36); Mean Corpuscular Hemoglobin 30.0 pg (26-34); Mean Corpuscular Volume 94.3 fl (80-100); Nucleated Red Blood Cells Absolute Auto 0.000 K/mm3 (0.0-0.012); Nucleated Red Blood Cells Perc 0.0 % (0.0-0.2); Platelet Count Result 276 k/mm3 (150-375); Red Blood Count 4.56 M/mm3 (4.2-5.4); White Blood Count 5.4 K/mm3 (4.5-10.0)
[2025-04-02 13:07] LABS: Alanine Aminotransferase 25 U/L (6-35); Albumin Level 4.4 g/dL (3.5-5.1); Alkaline Phosphatase 73 U/L (38-126); Anion Gap 6 mmol/L (4-12); Aspartate Amino Transferase 46 U/L (14-36); Bilirubin,Total 0.6 mg/dL (0.2-1.3); Blood Urea Nitrogen 19 mg/dL (7-17); Calcium 9.9 mg/dL (8.4-10.2); Carbon Dioxide 27 mmol/L (22-30); Chloride 108 mmol/L (98-107); Cholesterol 244 mg/dL (0-200); Estimated Glomerular Filt Rate > 60; Glucose 107 mg/dL (65-110); HDL Direct 54 mg/dL; Magnesium 2.2 mg/dL (1.6-2.3); Potassium 4.5 mmol/L (3.4-5.0); Sodium 141 mmol/L (137-145); Total Protein 7.8 g/dL (6.3-8.2); Triglycerides 142 mg/dL (<150)
[2025-04-02 14:47] LABS: Vitamin B12 > 1000.0 pg/mL (239-931)
[2025-04-02 15:05] LABS: Hemoglobin A1C 5.9 % (<5.7)
== END 2025-04-02 09:27 | disposition home or self-care (01) ==
PROVIDERS: PCP Clinical Nurse Specialist; Visit Provider Clinical Nurse Specialist
DX: E78.5 Hyperlipidemia, unspecified (principal); E53.8 Deficiency of other specified B group vitamins; E55.9 Vitamin D deficiency, unspecified; I73.00 Raynaud's syndrome without gangrene; R13.10 Dysphagia, unspecified; M19.90 Unspecified osteoarthritis, unspecified site; G43.909 Migraine, unspecified, not intractable, without status migrainosus; R73.01 Impaired fasting glucose; Z13.29 Encounter for screening for other suspected endocrine disorder
CPT/HCPCS: 36415; 80053; 80061; 82306; 82607; 83036; 83735; 85025